=== PATIENT | female | born 1990 | race Two or more races ===

== ENCOUNTER 2019-07-08 22:49 | Emergency (ER) | payer OTHER ==
[~2019-07-08] VITALS: Ht 165.1 cm; Wt 104.3 kg
[2019-07-08] MEDS ORDERED: PRENATAL 19 TA1 EACH (23:09)
[2019-07-09] MEDS ORDERED: PEPCID40 MG PO (04:16)
[2019-07-09] MEDS ORDERED: ZOFRAN4 MG PO (04:16)
== END 2019-07-09 04:25 ==
LOC: ER 22:49
DX: O20.0 Threatened abortion (principal); Z3A.11 11 weeks gestation of pregnancy

== ENCOUNTER 2019-08-14 16:12 | Emergency (ER) | payer OTHER ==
[~2019-08-14] VITALS: Ht 165.1 cm; Wt 102.1 kg
[~2019-08-14 16:12] MED LIST: PEPCID40 MG PO; PRENATAL 19 TA1 EACH; ZOFRAN4 MG PO
== END 2019-08-14 22:08 | disposition home or self-care (01) ==
LOC: ER 16:12 → EDBD 17:10 → ER 17:10
DX: O21.0 Mild hyperemesis gravidarum (principal); Z34.02 Encounter for supervision of normal first pregnancy, second trimester

== ENCOUNTER → 2019-09-08 | Emergency (ER) | payer OTHER ==
[~2019-09-08] VITALS: Ht 165.1 cm; Wt 104.3 kg
== END | disposition home or self-care (01) ==
LOC: ER 22:31
DX: T78.1XXA Other adverse food reactions, not elsewhere classified, initial encounter (principal); R11.2 Nausea with vomiting, unspecified; L27.2 Dermatitis due to ingested food; X58.XXXA Exposure to other specified factors, initial encounter

== ENCOUNTER 2019-09-30 04:15 | Outpatient (CLI) | payer OTHER ==
[2019-09-30] MEDS ORDERED: FOLIC ACID20 MG PO (04:31)
[2019-09-30] MEDS ORDERED: ASPIR 8181 MG PO (04:31)
== END 2019-09-30 10:08 | disposition home or self-care (01) ==
LOC: OBS/DEL 04:15
DX: O26.892 Other specified pregnancy related conditions, second trimester (principal); R10.2 Pelvic and perineal pain; R07.89 Other chest pain; O35.8XX0 Maternal care for other (suspected) fetal abnormality and damage, not applicable or unspecified

== ENCOUNTER 2019-10-30 16:44 | Emergency (ER) | payer OTHER ==
[~2019-10-30] VITALS: Ht 165.1 cm; Wt 109.8 kg
[~2019-10-30 16:44] MED LIST changes: +ASPIR 8181 MG PO; +FOLIC ACID20 MG PO
== END 2019-10-30 19:01 | disposition home or self-care (01) ==
LOC: ER 16:44
DX: T78.1XXA Other adverse food reactions, not elsewhere classified, initial encounter (principal); X58.XXXA Exposure to other specified factors, initial encounter

== ENCOUNTER 2019-12-24 10:14 | Outpatient (CLI) | payer OTHER | END 2019-12-25 13:54 | disposition home or self-care (01) | LOC: OBS/DEL 10:14 | DX: O99.413 Diseases of the circulatory system complicating pregnancy, third trimester (principal); R00.0 Tachycardia, unspecified ==

== ENCOUNTER 2019-12-29 06:39 | Inpatient (IN) | payer OTHER ==
[~2019-12-29] VITALS: Ht 165.1 cm; Wt 108.9 kg
--- NOTE | 2019-12-29 07:23 | NUR ---
PACIENTE ALERTA Y ORIENTADA EN [place] ESFER[place], LA MISMA INDICA DOLOR DE GARGANTA, TOS Y DOLOR EN EL CUERPO DESDE OTONIEL. SE ORIENTA A ESPERAR EN ADIS PARA EVALUACION MEDICA.
--- NOTE | 2019-12-29 09:49 | NUR ---
PACIENTE EVALUADA POR LA DRA. MARTINEZ SE TOMAMEUSTRA D ESNAGRE YS E CONNIE EN ADIS EN ESPERA D ERESULATDOS .
--- NOTE | 2019-12-29 15:40 | NUR ---
SE RECIBE PACIENTE ALERTA Y ORIENTADA EN CAMA EN COMPANIA DE FAMILIAR PACIENTE CON VENOPUNCION PATENTE EVELIO DE EDEMA Y ERRITEMA CON #[id number]. PACIENTE CONSULTADA CON EL DR. KHANG JORDAN.
== END 2020-01-03 12:27 | disposition home or self-care (01) | DRG 833 ==
LOC: ER 06:39 → MEDJ 16:57 → SEC-K 16:57 → OB/GYN 16:57 → SEC-K 22:24 → MEDJ 22:43
PROVIDERS: ADMIT Obstetrics & Gynecology
PROC: 4A12X4Z Monitoring of Cardiac Electrical Activity, External Approach (ICD-10-PCS; principal; 2019-12-29)
PROC: 3E0F7GC Introduction of Other Therapeutic Substance into Respiratory Tract, Via Natural or Artificial Opening (ICD-10-PCS; 2019-12-29)
PROC: 8E0ZXY6 Isolation (ICD-10-PCS; 2019-12-29)
PROC: 4A1HXFZ Monitoring of Products of Conception, Cardiac Rhythm, External Approach (ICD-10-PCS; 2019-12-30)
DX: O99.513 Diseases of the respiratory system complicating pregnancy, third trimester (principal); J10.1 Influenza due to other identified influenza virus with other respiratory manifestations; B96.0 Mycoplasma pneumoniae [M. pneumoniae] as the cause of diseases classified elsewhere; I49.8 Other specified cardiac arrhythmias; Z3A.35 35 weeks gestation of pregnancy

== ENCOUNTER 2020-01-14 05:18 | Inpatient (IN) | payer OTHER ==
[~2020-01-14] VITALS: Ht 165.1 cm; Wt 113.4 kg
[2020-01-14] MEDS ORDERED: PRENATAL + DHA1 EAC1 PO (06:18)
[2020-01-14] MEDS ORDERED: AMPICILLIN TRI500 MG PO (06:19)
[2020-01-14] MEDS ORDERED: FOLIC ACID0.8 M1 PO (06:19)
[2020-01-14] MEDS ORDERED: ASPIR 8181 MG PO (06:20)
== END 2020-01-16 13:52 | disposition home or self-care (01) | DRG 807 ==
LOC: LDR 05:18 → OB/GYN 05:18
PROVIDERS: ADMIT Obstetrics & Gynecology
PROC: 10E0XZZ Delivery of Products of Conception, External Approach (ICD-10-PCS; principal; 2020-01-14)
PROC: 0HQ9XZZ Repair Perineum Skin, External Approach (ICD-10-PCS; 2020-01-14)
PROC: 10907ZC Drainage of Amniotic Fluid, Therapeutic from Products of Conception, Via Natural or Artificial Opening (ICD-10-PCS; 2020-01-14)
PROC: 3E033VJ Introduction of Other Hormone into Peripheral Vein, Percutaneous Approach (ICD-10-PCS; 2020-01-14)
PROC: 4A1HXCZ Monitoring of Products of Conception, Cardiac Rate, External Approach (ICD-10-PCS; 2020-01-14)
DX: O70.0 First degree perineal laceration during delivery (principal); Z37.0 Single live birth; O99.824 Streptococcus B carrier state complicating childbirth; Z3A.38 38 weeks gestation of pregnancy

== ENCOUNTER 2023-07-01 07:54 | Outpatient (CLI) | payer OTHER ==
[~2023-07-01 07:54] MED LIST changes: +AMPICILLIN TRI500 MG PO; +FOLIC ACID0.8 M1 PO; +PRENATAL + DHA1 EAC1 PO
== END 2023-07-01 08:02 | disposition home or self-care (01) ==
LOC: RX STUDY 07:54
DX: Z93.2 Ileostomy status (principal)